=== PATIENT | male | born 2000 | race African-American/Black ===

== ENCOUNTER 2020-10-30 10:18 | Emergency (ER) | payer SELFPAY ==
[~2020-10-30] VITALS: Ht 188 cm; Wt 72.7 kg
[~2020-10-30 10:18] MED LIST: CIPRO 500MG TA500 MG PO; MOTRIN 800800 MG/TAB PO; NO HOME MEDICATIONS; PYRIDIUM200 M1 PO; ZITHROMAX Z PA250 MG PO
[2020-10-30 10:25] VITALS: BP 125/82; TEMP 98.1
[2020-10-30] MEDS ORDERED: AMOXICILLIN 50500 MG PO (11:06)
[2020-10-30 11:17] VITALS: PULSE 65
== END 2020-10-30 11:17 | disposition home or self-care (01) ==
LOC: COL.ER 10:18
DX: K08.89 Other specified disorders of teeth and supporting structures (principal); F17.210 Nicotine dependence, cigarettes, uncomplicated

== ENCOUNTER 2021-02-26 22:51 | Emergency (ER) | payer SELFPAY ==
[~2021-02-26] VITALS: Ht 185.4 cm; Wt 77.3 kg
[~2021-02-26 22:51] MED LIST changes: +AMOXICILLIN 50500 MG PO
[2021-02-26 23:11] VITALS: TEMP 97.8
[2021-02-27 00:41] LABS: COLLECTION METHOD CLEAN CATCH
[2021-02-27 00:47] LABS: MUCOUS Present /lpf; PH 8 (5-8); SQUAMOUS EPITHELIAL 0-2 /hpf; URINE APPEARANCE Hazy; URINE BACTERIA Rare /hpf; URINE BILIRUBIN Negative (NEGATIVE); URINE BLOOD Negative (NEGATIVE); URINE COLOR Yellow; URINE GLUCOSE Negative (NEGATIVE); URINE KETONE Negative (NEGATIVE); URINE LEUKOCYTE ESTERASE 2+ (NEGATIVE); URINE NITRATE Negative (NEGATIVE); URINE PROTEIN(semi-quant) 1+ (NEGATIVE); URINE UROBILINOGEN Negative (NEGATIVE)
[2021-02-27 01:57] VITALS: BP 124/78; PULSE 64
== END 2021-02-27 01:57 | disposition home or self-care (01) ==
LOC: COL.ER 22:51
PROVIDERS: Emergency Medicine
DX: N34.2 Other urethritis (principal)
CPT/HCPCS: J0696